=== PATIENT | female | born 1985 | race African-American/Black ===

== ENCOUNTER 2019-06-04 16:46 | Emergency (ER) | payer BC ==
[~2019-06-04] VITALS: Ht 160 cm; Wt 82.6 kg
[2019-06-04 17:00] VITALS: BP 163/108
[2019-06-04 17:11] LABS: BILIRUBIN,URINE NEGATIVE (NEG); CLARITY,URINE CLEAR; COLOR,URINE YELLOW; NITRITE,URINE NEGATIVE (NEG); PROTEIN,URINE NEGATIVE (NEG-TRACE)
[2019-06-04] MEDS ORDERED: MORPHINE SULFATE 10 MG/ML VIAL. IV ONE (17:15)
[2019-06-04] MEDS ORDERED: IV NORMAL SALINE 1000ML BAG 1,000 ML IV ONE (17:15)
[2019-06-04] MEDS ORDERED: ONDANSETRON PF 4 MG/2 ML VIAL. IV ONE (17:15)
[2019-06-04 17:18] LABS: BARBITURATES NEG (NEG); BENZODIAZEPINES NEG (NEG); CANNABINOIDS NEG (NEG); COCAINE NEG (NEG); METHADONE NEG (NEG); OPIATES POS (NEG); PHENCYCLIDINE NEG (NEG)
[2019-06-04 17:19] LABS: AMPHETAMINE/METHAMPHETAMINE NEG (NEG); BACTERIA,URINE FEW /HPF (0-FEW); SQUAMOUS EPITHELIAL CELL,UR MOD /LPF
[2019-06-04 17:20] LABS: WBC,URINE OCC /HPF (0-4)
[2019-06-04 17:23] LABS: TRICHOMONAS,URINE PRESENT
[2019-06-04 17:36] LABS: BASO # 0.1 x10^3/uL (0.0-0.2); BASO % 1 % (0-3); EOS % 1 % (0-3); HEMATOCRIT 35.8 % (36.0-47.0); HEMOGLOBIN 12.1 g/dL (12.0-15.5); LYMPH # 1.4 x10^3/uL (1.0-4.8); LYMPH % 25 % (24-48); MEAN CORPUSCULAR HEMOGLOBIN 29 pg (25-35); MEAN CORPUSCULAR HGB CONC 34 g/dL (31-37); MEAN CORPUSCULAR VOLUME 86 fL (79-100); MONO # 0.5 x10^3/uL (0.0-1.1); MONO % 8 % (0-9); NEUT # 3.5 x10^3/uL (1.8-7.7); NEUT % 65 % (31-73); PLATELET COUNT 484 x10^3/uL (140-400); RED BLOOD COUNT 4.19 x10^6/uL (3.50-5.40); RED CELL DISTRIBUTION WIDTH 14.3 % (11.5-14.5); WHITE BLOOD COUNT 5.4 x10^3/uL (4.0-11.0)
[2019-06-04 17:48] LABS: CALCIUM 8.9 mg/dL (8.5-10.1); CREATININE 0.8 mg/dL (0.6-1.0); GFR 98.2; POTASSIUM 3.9 mmol/L (3.5-5.1)
[2019-06-04 17:55] LABS: ALBUMIN 4.3 g/dL (3.4-5.0); ALBUMIN/GLOBULIN RATIO 1.3 (1.0-1.7); TOTAL BILIRUBIN 0.5 mg/dL (0.2-1.0); TOTAL PROTEIN 7.5 g/dL (6.4-8.2)
[2019-06-04] MEDS ORDERED: AZITHROMYCIN 250 MG TABLET. PO ONE (18:00)
[2019-06-04] MEDS ORDERED: cefTRIAXone IV Push 1 GM VIAL. IVP ONE (18:00)
[2019-06-04] MEDS ORDERED: metroNIDAZOLE 500 MG TABLET PO ONE (18:00)
--- NOTE | 2019-06-04 18:11 | RAD ---
EXAM: PELVIC ULTRASOUND. HISTORY: Pelvic and abdominal pain. Endometriosis. COMPARISON: None. FINDINGS: Sonographic evaluation of the pelvis was performed transabdominally and transvaginally. The uterus is anteverted and measures 9.1 x 4.2 x 4.1 cm. The endometrial stripe is thin at <3 mm. An intrauterine device is noted on real-time images but not well seen on the static images. No masses are identified. There is no significant free fluid. The right ovary measures 3.1 x 2.6 x 1.1 cm. The left ovary measures 2.6 x 2.5 x 1.6 cm. There is normal Doppler flow bilaterally. There are no suspicious lesions. IMPRESSION: 1. No cause for acute pain is identified sonographically. Electronically signed by: Swathi Padilla MD (06/04/2019 6:09 PM) [facility]
--- NOTE | 2019-06-04 18:31 | PHYS DOC ---
Past Medical History Past Medical History: Endometriosis (JULIO CESAR LANDRUM APRN) Past Surgical History: No Surgical History (JULIO CESAR LANDRUM APRN) Alcohol Use: None Drug Use: None (JULIO CESAR LANDRUM APRN) Adult General Chief Complaint Chief Complaint: ABDOMINAL PAIN HPI HPI Patient is a 34 year old female who arrives in the ED crying out loud and screaming complaining of severe onset of pelvic pain due to her endometriosis that began while she was getting her hair done. Patient states she tried taking hydrocodone withdrawal relief. She is screaming in the ED. (JULIO CESAR LANDRUM APRN) Review of Systems Review of Systems Constitutional: Denies fever or chills [] Eyes: Denies change in visual acuity, redness, or eye pain [] HENT: Denies nasal congestion or sore throat [] Respiratory: Denies cough or shortness of breath [] Cardiovascular: No additional information not addressed in HPI [] GI: Reports severe abdominal pain onset, denies nausea, vomiting, bloody stools or diarrhea [] : Denies dysuria or hematuria [] Musculoskeletal: Denies back pain or joint pain [] Integument: Denies rash or skin lesions [] Neurologic: Denies headache, focal weakness or sensory changes [] All other systems were reviewed and found to be within normal limits, except as documented in this note. (JULIO CESAR LANDRUM APRN) Current Medications Current Medications Current Medications Medications (Trade) Dose Ordered Sig/Reina Start Time Stop Time Status Last Admin Dose Admin Azithromycin (Zithromax) 1,000 mg 1X ONCE 06/04/19 18:00 06/04/19 18:01 DC 06/04/19 18:24 1,000 MG Ceftriaxone Sodium (Rocephin) 1 gm 1X ONCE 06/04/19 18:00 06/04/19 18:01 DC 06/04/19 18:24 1 GM Metronidazole (Flagyl) 2,000 mg 1X ONCE 06/04/19 18:00 06/04/19 18:01 DC 06/04/19 18:24 2,000 MG Morphine Sulfate (Morphine Sulfate) 5 mg 1X ONCE 06/04/19 17:15 06/04/19 17:16 DC 06/04/19 17:22 5 MG Ondansetron HCl (Zofran) 4 mg 1X ONCE 06/04/19 17:15 06/04/19 17:16 DC 06/04/19 17:22 4 MG Sodium Chloride 1,000 ml @ 1,000 mls/hr 1X ONCE 06/04/19 17:15 06/04/19 18:14 DC 06/04/19 17:22 1,000 MLS/HR (CLEMENTINE WIGGINS DO) Allergies Allergies Allergies Coded Allergies Type Severity Reaction Last Updated Verified No Known Drug Allergies 06/04/19 No (CLEMENTINE WIGGINS DO) Physical Exam Physical Exam Constitutional: Well developed, well nourished, no acute distress, non-toxic appearance. [] HENT: Normocephalic, atraumatic, bilateral external ears normal, oropharynx moist, no oral exudates, nose normal. [] Eyes: PERRLA, EOMI, conjunctiva normal, no discharge. [] Neck: Normal range of motion, no tenderness, supple, no stridor. [] Cardiovascular:Heart rate regular rhythm, no murmur [] Lungs & Thorax: Bilateral breath sounds clear to auscultation [] Abdomen: Bowel sounds normal, soft, no tenderness, no masses, no pulsatile masses. [] Skin: Warm, dry, no erythema, no rash. [] Back: No tenderness, no CVA tenderness. [] Extremities: No tenderness, no cyanosis, no clubbing, ROM intact, no edema. [] Neurologic: Alert and oriented X 3, normal motor function, normal sensory function, no focal deficits noted. [] Psychologic: screaming and crying out loud (MUTUNGA,JULIO CESAR [employer]) Current Patient Data Vital Signs Vital Signs Date Time Temp Pulse Resp B/P (MAP) Pulse Ox O2 Delivery O2 Flow Rate FiO2 06/04/19 17:00 98.4 109 20 163/108 (126) 98 Room Air 98.4 (CLEMENTINE WIGGINS DO) Lab Values Laboratory Tests Test 06/04/19 16:55 06/04/19 16:58 06/04/19 17:25 Urine Collection Type Unknown Urine Color Yellow Urine Clarity Clear Urine pH 7.0 Urine Specific [place] 1.025 Urine Protein Negative mg/dL (NEG-TRACE) Urine Glucose (UA) Negative mg/dL (NEG) Urine Ketones (Stick) Negative mg/dL (NEG) Urine Blood Negative (NEG) Urine Nitrite Negative (NEG) Urine Bilirubin Negative (NEG) Urine Urobilinogen Dipstick 1.0 mg/dL (0.2 mg/dL) Urine Leukocyte Esterase Negative (NEG) Urine RBC 1-2 /HPF (0-2) Urine WBC Occ /HPF (0-4) Urine Squamous Epithelial Cells Mod /LPF Urine Bacteria Few /HPF (0-FEW) Urine Mucus Marked /LPF Urine Trichomonas Present Urine Opiates Screen Pos (NEG) Urine Methadone Screen Neg (NEG) Urine Barbiturates Neg (NEG) Urine Phencyclidine Screen Neg (NEG) Urine Amphetamine/Methamphetamine Neg (NEG) Urine Benzodiazepines Screen Neg (NEG) Urine Cocaine Screen Neg (NEG) Urine Cannabinoids Screen Neg (NEG) Urine Ethyl Alcohol Neg (NEG) POC Urine HCG, Qualitative Hcg negative (Negative) White Blood Count 5.4 x10^3/uL (4.0-11.0) Red Blood Count 4.19 x10^6/uL (3.50-5.40) Hemoglobin 12.1 g/dL (12.0-15.5) Hematocrit 35.8 % (36.0-47.0) L Mean Corpuscular Volume 86 fL (79-100) Mean Corpuscular Hemoglobin 29 pg (25-35) Mean Corpuscular Hemoglobin Concent 34 g/dL (31-37) Red Cell Distribution Width 14.3 % (11.5-14.5) Platelet Count 484 x10^3/uL (140-400) H Neutrophils (%) (Auto) 65 % (31-73) Lymphocytes (%) (Auto) 25 % (24-48) Monocytes (%) (Auto) 8 % (0-9) Eosinophils (%) (Auto) 1 % (0-3) Basophils (%) (Auto) 1 % (0-3) Neutrophils # (Auto) 3.5 x10^3/uL (1.8-7.7) Lymphocytes # (Auto) 1.4 x10^3/uL (1.0-4.8) Monocytes # (Auto) 0.5 x10^3/uL (0.0-1.1) Eosinophils # (Auto) 0.0 x10^3/uL (0.0-0.7) Basophils # (Auto) 0.1 x10^3/uL (0.0-0.2) Sodium Level 136 mmol/L (136-145) Potassium Level 3.9 mmol/L (3.5-5.1) Chloride Level 101 mmol/L (98-107) Carbon Dioxide Level 21 mmol/L (21-32) Anion Gap 14 (6-14) Blood Urea Nitrogen 9 mg/dL (7-20) Creatinine 0.8 mg/dL (0.6-1.0) Estimated GFR (Cockcroft-Gault) 98.2 BUN/Creatinine Ratio 11 (6-20) Glucose Level 94 mg/dL (70-99) Calcium Level 8.9 mg/dL (8.5-10.1) Total Bilirubin 0.5 mg/dL (0.2-1.0) Aspartate Amino Transferase (AST) 17 U/L (15-37) Alanine Aminotransferase (ALT) 21 U/L (14-59) Alkaline Phosphatase 49 U/L (46-116) Total Protein 7.5 g/dL (6.4-8.2) Albumin 4.3 g/dL (3.4-5.0) Albumin/Globulin Ratio 1.3 (1.0-1.7) Ethyl Alcohol Level < 10 mg/dL (0-10) Laboratory Tests 06/04/19 17:25 Laboratory Tests 06/04/19 17:25 (CLEMENTINE WIGGINS DO) EKG EKG [] (JULIO CESAR LANDRUM APRN) Radiology/Procedures Radiology/Procedures []PROCEDURE: PELVIS COMPLETE EXAM: PELVIC ULTRASOUND. HISTORY: Pelvic and abdominal pain. Endometriosis. COMPARISON: None. FINDINGS: Sonographic evaluation of the pelvis was performed transabdominally and transvaginally. The uterus is anteverted and measures 9.1 x 4.2 x 4.1 cm. The endometrial stripe is thin at <3 mm. An intrauterine device is noted on real-time images but not well seen on the static images. No masses are identified. There is no significant free fluid. The right ovary measures 3.1 x 2.6 x 1.1 cm. The left ovary measures 2.6 x 2.5 x 1.6 cm. There is normal Doppler flow bilaterally. There are no suspicious lesions. IMPRESSION: 1. No cause for acute pain is identified sonographically. Electronically signed by: Swathi Padilla MD (06/04/2019 6:09 PM) [facility] DICTATED and SIGNED BY: DAYANARA PADILLA MD DATE: 06/04/19 1807 (JULIO CESAR LANDRUM APRN) Course & Med Decision Making Course & Med Decision Making Pertinent Labs and Imaging studies reviewed. (See chart for details) This is a 34-year-old female patient presenting to the ED today screaming and crying complaining of severe onset of abdominal pain specifically pelvic region due to endometriosis. CBC, CMP- no acute findings, urine analysis is negative for infection, noted for Trichomonas, patient was treated f STD and education provided. Pelvic ultrasound was negative for any acute findings. Patient was given pain medicine, currently calming no distress. Discharged to home and follow up with her FINANCIAL COMPLIANCE OFFICER as soon as possible. (JULIO CESAR LANDRUM APRN) Dragon Disclaimer Dragon Disclaimer This electronic medical record was generated, in whole or in part, using a voice recognition dictation system. (JULIO CESAR LANDRUM APRN) Departure Departure Impression: Primary Impression: Pelvic pain Additional Impressions: Endometriosis Trichomonal vaginitis Disposition: HOME, SELF-CARE Condition: STABLE Referrals: UNKNOWN PCP NAME (PCP) follow up with your O follow-up with your FINANCIAL COMPLIANCE OFFICER as soon as possible Patient Instructions: Endometriosis, Trichomoniasis Additional Instructions: You were evaluated in the emergency room for pelvic pain from endometriosis. Please take [id number] pain relievers as needed, follow-up with your FINANCIAL COMPLIANCE OFFICER as soon as possible. We also recommended you contact all your sex partners, let them know you were treated for STDs and ask them to seek treatment too. Use protection at all times. Attending Signature Attending Signature I have reviewed the PA/ARCHAEOLOGIST's note and plan of care. I was available for cons ultation as needed during the patient's visit in the emergency department. I agree with the clinical impression, plan, and disposition. (LCEMENTINE WIGGINS DO) Problem Qualifiers JULIO CESAR LANDRUM APRN Jun 04, 2019 18:31 CLEMENTINE WIGGINS DO Jun 08, 2019 15:43
== END 2019-06-04 19:02 | disposition home or self-care (01) ==
LOC: ER 16:46
DX: N80.9 Endometriosis, unspecified (principal); A59.01 Trichomonal vulvovaginitis
CPT/HCPCS: 36415; 76856; 80053; 80307; 81001; 81025; 85025; 96374; 96375; 99285; G0480; J0696; J2270; J2405; J7030; Q0144